=== PATIENT | female | born 1995 | race Caucasian/White ===

== ENCOUNTER → 2018-05-27 12:38 | Outpatient (CLI) | payer OTHER, SELFPAY ==
--- NOTE | 2018-05-27 12:42 | US_ITS ---
US OB transvaginal Ordering Physician: Chi Zarate MD Patient Age: 22 years: Female HISTORY: ITS.REASON: US OB- Dates Early gestation evaluate fordates TECHNIQUE: Transvaginal scanning. COMPARISON :None FINDINGS Single viable intrauterine gestation. . Cervix long and closed measuring over 3.3 cm length measurements: Average ultrasound age = 9 weeks 4 days Gestational age = 10 weeks 0 days... Based on LMP of 03/18/2018 [facility] based on ultrasound = 12/26/2018. Yolk sac is identified and measures 0.57 cm. Average CRL = 2.75 cm = 9 weeks 4 days Heart rate 170 BPM. Cardiac and activity documented with cine. Left ovary 3.5 cm x 2 cm x 1.75 cm. ....IMPRESSION: ... Single viable intrauterine gestation. Active fetus. With Yolk sac, amnion identified 9 weeks 4 days average ultrasound age Left ovary generous but normal volume.] Is not seen.
== END ==
PROVIDERS: Family Provider Internal Medicine Adolescent Medicine; PCP Internal Medicine Adolescent Medicine; Visit Provider Nurse Practitioner Obstetrics & Gynecology
DX: O26.841 Uterine size-date discrepancy, first trimester (principal)
CPT/HCPCS: 76830

== ENCOUNTER → 2018-06-07 09:54 | Outpatient (CLI) | payer OTHER, SELFPAY ==
[2018-06-07 10:32] LABS: Basophils % 0.2 % (0.1-2.0); Eosinophils # 0.2 K/mm3 (0.0-0.4); Eosinophils % 1.6 % (0.1-12.0); Hematocrit 41.8 % (37.0-47.0); Hemoglobin 13.7 g/dL (12.2-16.2); Lymphocytes # 1.8 K/mm3 (0.7-4.5); Lymphocytes % 18.2 K/mm3 (10-50); Mean Corpuscular HGB Conc 32.7 g/dL (31.8-35.4); Mean Corpuscular Hemoglobin 26.8 pg (27.0-31.2); Mean Corpuscular Volume 81.8 fl (81-99); Mean Platelet Volume 7.2 fl (7.4-10.4); Monocytes # 0.3 K/mm3 (0.1-1.0); Monocytes % 3.2 % (1.7-9.3); Neutrophils # 7.5 K/mm3 (1.8-7.8); Neutrophils % 76.8 % (37.0-80.0); Platelet Count 297 K/mm3 (142-424); Red Blood Count 5.11 M/mm3 (4.20-5.40); Red Cell Distribution Width 14.9 % (11.5-17.5); White Blood Count 9.7 K/mm3 (4.8-10.8)
[2018-06-10 06:33] LABS: Hepatitis B Surface Antigen Negative (Negative)
[2018-06-10 06:34] LABS: HIV Screen 4th Generation wRfx Non Reactive (Non Reactive); Hepatitis C Antibody 0.1 s/co ratio (0.0-0.9); Rapid Plasma Reagin Ab Titer Non Reactive (NonRea<1:1); Rubella Antibodies, IgG 8.31 index (Immune >0.99)
== END ==
PROVIDERS: Family Provider Internal Medicine Adolescent Medicine; PCP Internal Medicine Adolescent Medicine; Visit Provider Nurse Practitioner Obstetrics & Gynecology
DX: Z34.90 Encounter for supervision of normal pregnancy, unspecified, unspecified trimester (principal)
CPT/HCPCS: 36415; 85025; 86592; 86703; 86762; 86850; 87340; 87380; G0432

== ENCOUNTER → 2018-08-09 10:06 | Outpatient (CLI) | payer OTHER, BC, SELFPAY ==
--- NOTE | 2018-08-09 10:07 | US_ITS ---
US OB /maternal detail: INDICATION: ITS.REASON: US OB Complete ORDERING PHYSICIAN: Chi Zarate MD PATIENT AGE: 23 years TECHNIQUE: ultrasound transabdominal scanning. COMPARISON: No previous relevant studies. FINDINGS: Single viable intrauterine gestation. Variable, ended Cephalic position. Placenta: Anterior placenta grade 1. There is average amount fluid. The cervix appears satisfactory. Closed and measuring 4 cm in length. Complete survey performed and was unremarkable on the submitted images as in PACS. No discrete anomalies identified on survey imaging by technologist. Active fetus. Three-vessel cord with satisfactory umbilical cord insertion. 4- chamber heart noted. Survey of brain & ventricles unremarkable. Face and neck survey unremarkable. Diaphragm and chest views unremarkable. Abdomen: Both kidneys noted and unremarkable. Stomach noted and satisfactory. Spine: Survey of the spine satisfactory with no anomalies identified nor imaged. Both arms and legs noted. Amniotic Fluid: Adequate. Maternal adnexa: No significant findings. Measurements: Average ultrasound age 20w0d. Gestational Age 20w1d. Estimated due date by ultrasound age 0212/27/2018. Estimated weight 319 grams. BPD = 20w1d OFD = 20w3d HC = 19w4d AC = 19w5d FL = 20w2d Growth Percentile= 31% Heart Rate = 163 Cerebellum = 19w6d Humerus = 20w3d HC/AC is 1.18 (1.09-1.26). CI is 78% (70-86%). FL/BPD is 70%. FL/AC is 23%. IMPRESSION: There is a single live fetus which was in variable position but ended in the cephalic position. Average ultrasound age is 20 weeks and 0 days. All parameters correlate. Fetus was active with no anomalies apparent. Anterior grade 1 placenta without previa with average appearing amniotic fluid. Please see above for details
== END ==
PROVIDERS: Family Provider Internal Medicine Adolescent Medicine; PCP Internal Medicine Adolescent Medicine; Visit Provider Nurse Practitioner Obstetrics & Gynecology
DX: Z36.0 Encounter for antenatal screening for chromosomal anomalies (principal)
CPT/HCPCS: 76811

== ENCOUNTER → 2018-09-30 08:00 | Outpatient (CLI) | payer OTHER, BC, SELFPAY ==
[2018-09-30 09:15] LABS: Glucose,Fasting 98 mg/dL (60-105)
[2018-09-30 10:19] LABS: Glucose 1 Hour 163 mg/dL (74-106)
== END ==
PROVIDERS: Visit Provider Nurse Practitioner Obstetrics & Gynecology
DX: Z34.90 Encounter for supervision of normal pregnancy, unspecified, unspecified trimester (principal)
CPT/HCPCS: 36415; 82951

== ENCOUNTER → 2018-10-24 08:10 | Outpatient (CLI) | payer OTHER, BC, SELFPAY ==
[2018-10-24 08:27] LABS: Glucose,Fasting 101 mg/dL (60-105)
[2018-10-24 09:50] LABS: Glucose 1 Hour 193 mg/dL (74-106)
[2018-10-24 10:54] LABS: Glucose 2 Hour 175 mg/dL (74-106)
[2018-10-24 11:45] LABS: Glucose 3 Hour 162 mg/dL (74-106)
== END ==
PROVIDERS: Visit Provider Nurse Practitioner Obstetrics & Gynecology
DX: Z34.90 Encounter for supervision of normal pregnancy, unspecified, unspecified trimester (principal)
CPT/HCPCS: 36415; 82951

== ENCOUNTER → 2018-12-02 14:43 | Outpatient (CLI) | payer OTHER, BC, SELFPAY | PROVIDERS: Visit Provider Nurse Practitioner Obstetrics & Gynecology | DX: Z34.90 Encounter for supervision of normal pregnancy, unspecified, unspecified trimester (principal) | CPT/HCPCS: 86403 ==

== ENCOUNTER 2018-12-26 05:56 | Inpatient (IN) ==
[2018-12-26 06:41] LABS: Microscopic, Urine URINE MICROSCOPIC (MICROSCOPIC)
[2018-12-26 06:44] LABS: Appearance,Urine SL CLOUDY (Clear); Bilirubin,Urine Negative (Negative); Blood, Urine TRACE-I (Negative); Color,Urine YELLOW (Yellow); Glucose,Urine (UA) Negative (Negative); Ketones,Urine Negative (Negative); Leukocyte Esterase,Urine Negative (Negative); Protein,Urine 2+ (Negative); Urobilinogen,Urine 0.2 EU/dl (0.2)
[2018-12-26 06:47] VITALS: BP 128/82
[2018-12-26 07:00] LABS: Bacteria,Urine 4+ /lpf; RBC,Urine Occasional #/hpf (0-3); WBC,Urine Occasional #/hpf (0-3)
[2018-12-26 07:46] LABS: Basophils % 0.1 % (0.1-2.0); Eosinophils # 0.1 K/mm3 (0.0-0.4); Eosinophils % 1.5 % (0.1-12.0); Hematocrit 35.8 % (37.0-47.0); Hemoglobin 12.1 g/dL (12.2-16.2); Lymphocytes # 1.3 K/mm3 (0.7-4.5); Lymphocytes % 13.9 % (10-50); Mean Corpuscular HGB Conc 33.8 g/dL (31.8-35.4); Mean Corpuscular Hemoglobin 27.4 pg (27.0-31.2); Monocytes # 0.3 K/mm3 (0.1-1.0); Monocytes % 3.7 % (1.7-9.3); Neutrophils # 7.3 K/mm3 (1.8-7.8); Neutrophils % 80.7 % (37.0-80.0); Platelet Count 263 K/mm3 (142-424); Red Blood Count 4.42 M/mm3 (4.20-5.40)
--- NOTE | 2018-12-26 08:20 | Progress Note ---
Labor Note - Subjective: Date: 12/26/18 Time: 08:20 irregular contractions - Objective: NST:: Reactive Contractions:: every 4-5 minutes Cervical Dilation:: 3-4 Effacement:: 75% Station: 0 Membranes: ruptured - Fetus: Monitoring?: Yes monitoring type:: Internal Comment:: I inserted an IUPC and scalp clip. - Assessment: Labor progressing?: Yes Cephalopelvic disproportion?: No Patient Problems: All Active Problems Abnormal ultrasonic finding on screening of mother (Acute) GDM, class A1 (Acute) Polyhydramnios affecting (Acute) (Acute) - Plan: Anesthesia for epidural?: Yes Continue to labor down?: Yes Plan for ?: No Continue to monitor?: Yes Start pushing?: No
--- NOTE | 2018-12-26 08:22 | History & Physical Report ---
OB - H&P: HPI Antepartum - History of Present Illness Chief complaint: Term , ruptured membranes History of present illness: She is a-year-old 1 now para 0 at 40 weeks of. She ruptured her membranes about 5:00 she is a gestational diabetic with known polyhydramnios. - History of Present Criteria for establishing EDC:: LMP confirmed by 1st trimester US care: good care Ultrasounds: normal 1st trimester US, normal mid trimester US Obstetrical complications: gestational diabetes, other [facility] History I have reviewed the patient's past medical history: Yes Have you ever received a pneumonia vaccine?: No Have you received a flu vaccine this season?: No Other Surgeries: No: Amputation: No Fractures: No - *Social History Smoking Status: Never smoker Alcohol Intake: never Substance Use Type: denies use Occupational Status: other, student Family Hx:: No significant family history Para: 0 Review of Systems - Review of Systems Review of systems:: pertinent systems reviewed and negative unless documented below Meds Home Medications Medication Instructions Recorded Confirmed Type glyburide 2.5 mg tablet 2.5 mg PO DAILY 12/12/18 12/26/18 History Ferrous Sulfate 325 mg PO DAILY 12/26/18 12/26/18 History Lancets 0 unit .ROUTE .MEDSUPPLY 12/26/18 12/26/18 History Vit Calc,Iron,Folic [Kpn] 1 tab PO DAILY 12/26/18 12/26/18 History Allergies Allergy/AdvReac Type Severity Reaction Status Date / Time wheat Allergy Verified 12/26/18 06:47 MAPLE Allergy Uncoded 12/26/18 06:47 OB - H&P: Exam - Physical Exam Vital signs: Temp Pulse Resp BP Pulse Ox 98.0 F 83 18 128/82 100 12/26/18 06:12 12/26/18 06:12 12/26/18 06:12 12/26/18 06:12 12/26/18 06:12 - Constitutional no acute distress - Routine HEENT Exam Head: Present: normocephalic Eye: Present: EOMI, PERRL ENT: Present: mucous membranes moist - Routine Neck Exam Present: supple, full ROM - Routine Respiratory Exam Absent: accessory muscle use (good air entry bilaterally), respiratory distress, wheezes, crackles - Routine Cardiovascular Exam Present: RRR. Absent: murmur - Routine Abdominal Exam Present: soft, normoactive bowel sounds. Absent: tenderness, distended, guarding - Routine Rectal Exam Patient deferred: visual exam, digital exam - Routine Exam Patient deferred: external exam, groin exam, perineal exam - Routine Extremities Exam Present: full ROM. Absent: cyanosis, edema - Routine Skin Exam Present: intact. Absent: cyanosis - Routine Neurological Exam Present: alert, oriented X3 - Routine Psychiatric Exam Present: normal affect OB - Results - Labs Labs: Short CBC 12/26/18 Range/Units 07:20 WBC 9.0 (4.8-10.8) K/mm3 Hgb 12.1 L (12.2-16.2) g/dL Hct 35.8 L (37.0-47.0) % Plt Count 263 (142-424) K/mm3 Urine 12/26/18 Range/Units 06:25 Urine Color Yellow (Yellow) Urine Appearance Sl cloudy (Clear) Urine pH 7.0 (5.0-8.5) Ur Specific [place] 1.010 (1.005-1.030) Urine Protein 2+ (Negative) Urine Glucose (UA) Negative (Negative) OB - A/P Antepartum (1) Normal delivery at term Current visit: Yes Status: Acute (2) GDM, class A1 Current visit: No Status: Acute (3) Polyhydramnios affecting Current visit: No Status: Acute - Additional Plan Planning to breastfeed?: Yes Plan: expectant management Additional Information:: She has ruptured membranes and I inserted an IUPC and. She is receiving. We will expect a vaginal delivery.
--- NOTE | 2018-12-26 09:28 | Progress Note ---
[facility] Anesthesia Checklist - Structural Data Admitted From: Inpatient Planned Operative Procedure/s: labor epidural Consent for Planned Operative Procedure(s) Verified: Yes - Airway Assessment C-Spine Mobility Assessed: Yes TMJ Mobility Assessed: Yes Dentition: Good Dentition - Neurological Assessment Level of Consciousness: Awake, Alert, Appropriate - Anesthesia Plan Anesthesia Risk discussed: Yes Anesthesia Plan: Verified ASA Class: II Anesthesia Type: General [facility] History I have reviewed the patient's past medical history: Yes Have you ever received a pneumonia vaccine?: No Have you received a flu vaccine this season?: No Other Surgeries: No: Amputation: No Fractures: No - *Social History Smoking Status: Never smoker Alcohol Intake: never Substance Use Type: denies use Occupational Status: other, student Family Hx:: No significant family history Para: 0
--- NOTE | 2018-12-26 11:59 | Progress Note ---
Labor Note - Subjective: Date: 12/26/18 Time: 11:58 regular contraction - Objective: NST:: Reactive Contractions:: every 2-3 minutes Cervical Dilation:: 7-8 Effacement:: 100% Station: 0 Membranes: ruptured - Fetus: Monitoring?: No monitoring type:: Internal - Assessment: Labor progressing?: Yes Cephalopelvic disproportion?: No Patient Problems: All Active Problems Normal delivery at term (Acute) Abnormal ultrasonic finding on screening of mother (Acute) GDM, class A1 (Acute) Polyhydramnios affecting (Acute) (Acute) - Plan: Anesthesia for epidural?: Yes Continue to labor down?: Yes Plan for ?: No Continue to monitor?: Yes Start pushing?: No
--- NOTE | 2018-12-26 13:39 | Procedure Note ---
- Delivery Note Delivery Date:: 12/26/18 Delivery Time:: 13:20 Anesthesia Type: Epidural Was labor medically induced?: No Induction method: none Infant delivered prior to 39 weeks?: No Infant Gender: Male at 1 minute: 8 at 5 minutes: 9 LAC or MLE?: LAC Delivery Procedure:: She is a 23-year-old 1 para 1 now at 40 weeks gestational age. She ruptured her membranes this morning and was in early labor. She was augmented with oxytocin and under labor epidural progressed to full dilation. She delivered spontaneously a liveborn male child at 1:20 PM in the afternoon of December 26, 2018. The baby had Apgars of 8 at 1 minute and 9 at 5 minutes. PH was 7.46. On deliver the head it was noted that there was a nuchal cord. This was easily reduced. This is followed by deliver the anterior shoulder and the rest of the infant's body atraumatically. We allowed the cord to continue to pulsate for approximately 1 minute. The cord was then doubly clamped and cut. The baby was placed on the mother's abdomen for further care. The nurses assigned Apgars of 8 at 1 minute and 9 at 5 minutes. We then obtained cord blood as well as cord pH. PH was 7.46. Using gentle traction on the cord and countertraction the fundus I was able to easily deliver the placenta intact. It had a normal three-vessel cord. A small second-degree perineal laceration that was repaired with 3-0 Vicryl Rapide suture to the superficial vaginal tissue and 2-0 Vicryl suture to the perineal tissue. She has O+ blood, she is rubella immune and was group B streptococcus negative. She plans to breast-feed. Her dictaphone transcriber is Dr. Vasques. Estimated blood loss was approximately 400 cc. Laceration:: vaginal Placental Delivery Description: Spontaneous
[2018-12-27 06:46] LABS: Hematocrit 32.3 % (37.0-47.0)
[2018-12-27 07:04] LABS: Hemoglobin 10.8 g/dL (12.2-16.2)
--- NOTE | 2018-12-27 10:18 | Progress Note ---
Internal Medicine - PN: Subj *Date: 12/27/18 *Time: 10:17 Interval history: She is doing well this morning. She is bottle feeding. Her lochia is normal. Exam Vital signs and Labs for Last 24 Hours: Temp Pulse Resp BP Pulse Ox 98.0 F 83 18 128/82 100 12/26/18 06:12 12/26/18 06:12 12/26/18 06:12 12/26/18 06:12 12/26/18 06:12 Laboratory Results - last 24 hr 12/26/18 13:30: Cord ABG pH 7.36 12/27/18 06:00: Hgb 10.8 L D, Hct 32.3 L I & O for Last 24 hours: Intake & Output 12/24/18 12/25/18 12/26/18 12/27/18 11:59 11:59 11:59 11:59 Output Total 700 / 700 Balance -700 / -700 Weight 209 lb Microbiology Reports for the Last 24 Hours: Microbiology 12/26/18 06:25 Urine,Clean Catch Urine Culture - Preliminary NO GROWTH AFTER 24 HOURS - Constitutional no acute distress Assessment and Plan (1) Normal delivery at term Current visit: Yes Status: Acute Category: Medical Code(s): O80 - Encounter for full-term uncomplicated delivery (2) GDM, class A1 Current visit: No Status: Acute Category: Medical Code(s): O24.410 - Gestational diabetes mellitus in , diet controlled (3) Polyhydramnios affecting Current visit: No Status: Acute Category: Medical Code(s): O40.9XX0 - Polyhydramnios, unspecified trimester, not applicable or unspecified - Assessment and plan all Dx Assessment and Plan for all problems:: She is doing well today. We will plan to send her home tomorrow.
--- NOTE | 2018-12-28 10:09 | Discharge Summary ---
General - General Admission date:: 12/26/18 Discharge date: 12/28/18 HPI HPI: She is a 23-year-old 1 now para 1 who was 40 weeks gestational age. She came in with ruptured membranes. She has been followed with gestational diabetes throughout the . Hospital Course Hospital Course: She was augmented with oxytocin and under labor epidural progressed to full dilation. She delivered spontaneously a liveborn male child at 1:20 PM on the afternoon of December 26, 2018. The baby weighed 6 pounds 5 ounces. He was 19 inches long. He had Apgars of 8 at 1 minute and 9 at 5 minutes. She has done well and has remained afebrile throughout her hospitalization. She is taking [id number] analgesics. She is bottlefeeding. She has O+ blood, she is rubella immune and was group B streptococcus negative. She is discharged home to follow-up with me in 2 weeks time. Rhogam Administration: Not Indicated Objective Vital signs: Temp Pulse Resp BP Pulse Ox 98.0 F 83 18 128/82 100 12/26/18 06:12 12/26/18 06:12 12/26/18 06:12 12/26/18 06:12 12/26/18 06:12 no acute distress DS: Diagnosis - Discharge Diagnosis (1) Normal delivery at term Status: Acute (2) GDM, class A1 Status: Acute (3) Polyhydramnios affecting Status: Acute Discharge Plan - Patient Discharge Instructions ACTIVITY: No heavy lifting DIET: continue same diet - Follow up Plan Disposition: Home, Self-Halfway Medications: Home Medications Medication Instructions Recorded Confirmed Type glyburide 2.5 mg tablet 2.5 mg PO DAILY 12/12/18 12/26/18 History Ferrous Sulfate 325 mg PO DAILY 12/26/18 12/26/18 History Lancets 0 unit .ROUTE .MEDSUPPLY 12/26/18 12/26/18 History Vit Calc,Iron,Folic [Kpn] 1 tab PO DAILY 12/26/18 12/26/18 History Prescriptions/Medication Reconciliation: Continue Ferrous Sulfate 325 mg PO DAILY Vit Calc,Iron,Folic [Kpn] 1 tab PO DAILY Discontinued glyburide 2.5 mg tablet 2.5 mg PO DAILY Lancets 0 unit .ROUTE .MEDSUPPLY
== END 2018-12-28 11:32 | disposition home or self-care (01) | DRG 807 ==
LOC: OBOUT 05:56 → OB 05:58
PROVIDERS: ADMIT Obstetrics & Gynecology; ATTEND Nurse Practitioner Obstetrics & Gynecology
CPT/HCPCS: C1758

== ENCOUNTER 2020-10-07 21:37 | Emergency (ER) | payer OTHER, SELFPAY ==
[2020-10-07 21:39] VITALS: BP 139/80; PULSE 116; RESP 17; TEMP 37; O2SAT 99; BMI 34.9
[2020-10-07 22:03] LABS: Microscopic, Urine URINE MICROSCOPIC (MICROSCOPIC)
[2020-10-07 22:07] LABS: Appearance,Urine CLEAR (Clear); Bilirubin,Urine Negative (Negative); Blood, Urine 1+ (Negative); Color,Urine YELLOW (Yellow); Glucose,Urine (UA) Negative (Negative); Ketones,Urine Negative (Negative); Leukocyte Esterase,Urine Negative (Negative); Nitrate,Urine Negative (Negative); Protein,Urine Negative (Negative); Specific Gravity, Urine 1.025 (1.005-1.030)
[2020-10-07 22:09] VITALS: BP 129/81; PULSE 92; O2SAT 98
[2020-10-07 22:09] LABS: Urine Pregnancy, HCG Qual. Negative (Negative)
--- NOTE | 2020-10-07 22:20 | XR_ITS ---
PROCEDURE: XR LUMBAR SPINE MIN 4V CLINICAL INDICATION: back pain Low back pain radiating into leg COMPARISON: No exams were available for comparison FINDINGS: Suspected thoracic lumbar scoliosis convex left and could be scoliosis. The thoracic spine is not included on the exam. No fracture or dislocation. No lytic or blastic change. There is an IUD in place. The disc spaces are well preserved. SI joints have an unremarkable appearance. IMPRESSION: Suspect thoracolumbar scoliosis convex left and may be confirmed with scoliosis exam otherwise negative Dictated by: Santy Khan MD 10/08/2020 05:41 Santy Khan MD in [place] 10/08/2020 05:41
[2020-10-07 22:23] LABS: Bacteria,Urine Trace /lpf
[2020-10-07 22:30] VITALS: BP 121/69; PULSE 86; RESP 15; O2SAT 97
--- NOTE | 2020-10-07 22:41 | PC.NURSE ---
pt to radiology
--- NOTE | 2020-10-07 22:46 | [facility].EDBACK ---
ED Disposition Clinical Impression: Lumbar radiculopathy Disposition: Home, Self-Care Condition on Discharge: Good Instructions: DI for Back Pain With Sciatica Additional Instructions: use meds and see pcp for follow up Prescriptions: Cyclobenzaprine HCl [Flexeril 10mg tablet] 10 mg PO Q8HP PRN 30 Days #21 tab PRN Reason: Muscle Spasm [id number] predniSONE [Prednisone 20mg Tab] 20 mg PO BID #10 tab Transmission Status: [id number] Referrals: Matt Langley MD [Primary Care Provider] - - Critical Care Critical Care Time: No Attestation: On 10/07/20, the high probability of a clinically significant, sudden or life threatening deterioration of the following system(s) required my full and direct attention, intervention and personal management. The time I documented below is in addition to time spent performing reported procedures but includes the following listed in this critical care notation. Medical Decision Making - Medical Records Medical records reviewed: Yes: I reviewed the patient's medical records. - Jose Inquiry Pt receiving controlled substance: No Vital Signs: 10/07/20 21:39 10/07/20 22:09 10/07/20 22:30 Temperature 98.6 F Temperature Source Oral Pulse Rate [Left Radial] 116 H 92 H 86 Respiratory Rate 17 15 Blood Pressure [Right Arm] 139/80 129/81 121/69 Blood Pressure Mean [Right Arm] 99 97 86 Blood Pressure Source [Right Arm] Automatic Cuff Blood Pressure Position [Right Arm] Sitting 02 Sat by Pulse Oximetry 99 98 97 Oxygen Delivery Method Room Air - Lab Data Lab results reviewed: Yes: I reviewed the patient's lab results. Lab Results 10/07/20 21:48: Urine Color Yellow, Urine Appearance Clear, Urine pH 6.0, Ur Specific [place] 1.025, Urine Protein Negative, Urine Glucose (UA) Negative, Urine Ketones Negative, Urine Blood 1+, Urine Nitrate Negative, Urine Bilirubin Negative, Urine Urobilinogen 1.0, Ur Leukocyte Esterase Negative, Urine RBC 5-10, Urine WBC 10-20, Ur Squamous Epith Cells 10-20, Urine Bacteria Trace 10/07/20 21:48: Urine HCG, Qual Negative Orders (Tests/Meds): ORDERS Category Date Time Status XR lumbar spine min 4V Stat Exams 10/07/20 22:20 Ordered Urine Culture Stat Micro 10/07/20 21:48 Received - Radiology Data #1 Image(s): L-Spine Image Reviewed: Yes I reviewed the patient's radiology image Preliminary Findings: No Fracture Seen Back Pain HPI - General Chief Complaint: Back Pain/Injury Stated Complaint: back pain bent to lift child Time Seen by Provider: 10/07/20 22:30 Mode of Arrival: Ambulatory Source of Information: Patient, Medical Record Limitations: No Limitations Description of Symptoms (Recalled from ER Triage Doc. by RN): Pt reports lifting her child and feeling a pop in her lower back. She states her pain radiates down her right leg. Pt is ambulatory. She reports hx of sciatic nerve problems. - History of Present Illness HPI Narrative: lift injury with pop and rad to rt lower leg - no cauda equina sx Complaint: back pain Onset (ago): hour(s) Duration: intermittent Similar Symptoms Previously: Yes Location: lumbar spine Severity: moderate Quality: sharp Radiation: right leg Associated symptoms: denies other symptoms - Related Data Previous Rx's Medication Instructions Recorded Cyclobenzaprine HCl [Flexeril 10mg 10 mg PO Q8HP PRN 30 Days #21 tab 10/07/20 tablet] predniSONE [Prednisone 20mg 20 mg PO BID #10 tab 10/07/20 Tab] Allergies Allergy/AdvReac Type Severity Reaction Status Date / Time wheat Allergy Verified 03/16/19 09:54 MAPLE Allergy Uncoded 03/16/19 09:54 [facility] History - Hepatitis A Screen Drug use history?: No High risk sexual behaviors?: No History of sexually transmitted infection?: No Currently employed?: No Childcare worker?: No Do you have indoor plumbing?: Yes Do you have electric
[2020-10-07 22:54] VITALS: BP 121/69; PULSE 86; RESP 16; TEMP 36.7; O2SAT 98
== END 2020-10-07 23:00 | disposition home or self-care (01) ==
PROVIDERS: Emergency Provider Emergency Medicine; PCP Internal Medicine Adolescent Medicine
DX: M54.16 Radiculopathy, lumbar region (principal)
CPT/HCPCS: 72110; 81001; 81025; 87086; 87088; 87186; 99283

== ENCOUNTER 2024-05-14 11:36 | Emergency (ER) | payer BC, SELFPAY ==
[2024-05-14] VITALS (8 sets, daily range): BP systolic 109–136; BP diastolic 64–95; PULSE 78–127; RESP 16–18; TEMP 37–39; O2SAT 96–98; BMI 32.5
[2024-05-14 11:50] LABS: Microscopic, Urine URINE MICROSCOPIC (MICROSCOPIC)
--- NOTE | 2024-05-14 11:50 | PC.NURSE ---
DR BLAND AT BEDSIDE
[2024-05-14 11:51] LABS: Appearance,Urine CLOUDY (Clear); Bilirubin,Urine Negative (Negative); Blood, Urine 3+ (Negative); Color,Urine YELLOW (Yellow); Glucose,Urine (UA) Negative (Negative); Ketones,Urine 1+ (Negative); Leukocyte Esterase,Urine 3+ (Negative); Nitrate,Urine Negative (Negative); Protein,Urine 1+ (Negative); Urobilinogen,Urine 0.2 EU/dl (0.2)
--- NOTE | 2024-05-14 12:00 | XR_ITS ---
PROCEDURE INFORMATION: Exam: XR Chest Exam date and time: 05/14/2024 12:36 PM Age: 28 years old Clinical indication: Cough; Additional info: Cough, fever TECHNIQUE: Imaging protocol: Radiologic exam of the chest. Views: 2 views. COMPARISON: No relevant prior studies available. FINDINGS: Lungs: Unremarkable. No consolidation. Pleural spaces: Unremarkable. No pleural effusion. No pneumothorax. Heart/Mediastinum: Unremarkable. No cardiomegaly. Bones/joints: Unremarkable. IMPRESSION: No acute findings.
--- NOTE | 2024-05-14 12:00 | CT_ITS ---
PROCEDURE INFORMATION: Exam: CT Abdomen And Pelvis With Contrast Exam date and time: 05/14/2024 12:52 PM Age: 28 years old Clinical indication: Vomiting; Additional info: Lower abd pain, fever, diarrhea, vomiting TECHNIQUE: Imaging protocol: Computed tomography of the abdomen and pelvis with contrast. Radiation optimization: All CT scans at this facility use at least one of these dose optimization techniques: automated exposure control; mA and/or kV adjustment per patient size (includes targeted exams where dose is matched to clinical indication); or iterative reconstruction. Contrast material: ISOVUE; Contrast volume: 75 ml; Contrast route: IV; COMPARISON: OBFEMAT US OB /maternal detail 08/09/2018 10:13 AM FINDINGS: Liver: Normal. No mass. Gallbladder and biliary ducts: Normal. No calcified stones. No ductal dilation. Pancreas: Normal. No ductal dilation. Spleen: Normal. No splenomegaly. Adrenal glands: Normal. No mass. Kidneys and ureters: Patchy hypoattenuation in the left kidney consistent with pyelonephritis. Mild perinephric inflammatory changes around the left kidney consistent with infection. . Stomach and bowel: Unremarkable. No obstruction. No mucosal thickening. Appendix: No evidence of appendicitis. Intraperitoneal space: Unremarkable. No free air. No significant fluid collection. Vasculature: Unremarkable. No abdominal aortic aneurysm. Lymph nodes: Unremarkable. No enlarged lymph nodes. Urinary bladder: Unremarkable as visualized. Reproductive: IUD in the uterus non-obstructing left renal calculus Bones/joints: Unremarkable. No acute fracture. Soft tissues: Unremarkable. IMPRESSION: Patchy hypoattenuation in the left kidney consistent with pyelonephritis. Mild perinephric inflammatory changes around the left kidney consistent with infection. .
--- NOTE | 2024-05-14 12:08 | ED_ITS ---
Discharge Plan Disposition Patient Disposition: Home, Self-Care Condition: Good Prescriptions Prescriptions: New ondansetron 4 mg tablet,disintegrating 4 mg PO Q8H PRN (Reason: nausea and vomiting) 4 Days Qty: 12 0RF phenazopyridine [Pyridium] 200 mg tablet 200 mg PO Q8H PRN (Reason: pain) Qty: 6 0RF cefdinir 300 mg capsule 300 mg PO BID 10 Days Qty: 20 0RF Referrals Follow up/Referrals: Janessa Swanson APRN [Primary Care Provider] - See instructions Activity Restrictions/Add. Instructions Additional Instructions/Restrictions: You were evaluated in the emergency department today and diagnosed with a kidney infection. 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 You may take Tylenol and ibuprofen at home as needed for pain and/or fever. Make sure that you stay hydrated. Follow-up with your primary care provider over the next 2 to 3 days for reassessment. Return to the emergency department for new or worsening symptoms. Clinical Impressions Clinical Impression: Pyelonephritis Stand Alone Forms Stand Alone Forms: Work/School Release Instructions Patient Instructions: DI for Kidney Infection, DI for Nausea -- Adult Discharge ED Provider: Ely Son General Adult HPI General Chief complaint: Nausea/Vomiting/Diarrhea Stated complaint: vomiting, fever, dehydrated, abd pain Time Seen by Provider: 05/14/24 11:43 History of Present Illness HPI narrative: This patient is a 28-year-old female presenting to the emergency department for evaluation with concern for abdominal pain, nausea, vomiting, diarrhea, and fever. Patient reports that for the last month, she is intermittently been having lower abdominal pain that seems to worsen with eating. She also has some bloating. She notes she had initially been constipated, but now for the last few days she has been having nausea, vomiting, and diarrhea. Emesis is nonbloody and nonbilious and diarrhea is nonbloody. Has not been able to keep anything down and is concerned she is dehydrated. She started having fevers yesterday. She also notes a mild cough on review of systems. She denies any shortness of breath, dysuria, abnormal vaginal discharge, vaginal bleeding, or other concerns. She denies concerned she could be , as she currently has an IUD. She also denies concerns for STI. Related Data Previous Rx's Medication Instructions Recorded cefdinir 300 mg capsule 300 mg PO BID 10 days #20 caps 05/14/24 ondansetron 4 mg disintegrating 4 mg PO Q8H PRN nausea and 05/14/24 tablet vomiting 4 days #12 tabs phenazopyridine 200 mg tablet 200 mg PO Q8H PRN pain 6 doses #6 05/14/24 (Pyridium) tabs Allergies Allergy/AdvReac Type Severity Reaction Status Date / Time wheat Allergy Verified 03/16/19 09:54 MAPLE Allergy Uncoded [facility]16[facility] 09[facility] Disclaimer: The information contained in this section may have been updated after the patient was seen, as this information can be updated by other users. Social History Smoking Status: Never smoker alcohol intake: never substance use type: denies use current occupational status: unemployed Travel in the last 8 weeks: None housing: house ROS Obtained: Yes All systems reviewed & no additional complaints except as documented Physical Exam General General appearance: alert and in no apparent distress Head Head exam: atraumatic and normocephalic Eye Eye exam: Present normal appearance, PERRL and EOMI ENT ENT exam: Present normal exam, normal oropharynx, mucous membranes moist and normal external ear exam Neck Neck exam: Present normal inspection, full ROM and trachea midline; Absent tenderness Chest Chest inspection: Present normal inspection and symmetric chest wall rise; Absent tenderness Respiratory Respiratory exam: Present normal lung sounds bilaterally; Absent respiratory distress, wheezes, stridor or accessory muscle use Cardiovascular Cardiovascular exam: Present normal rhythm and tachycardia Abdominal Exam Abdominal exam: Present soft and tenderness (Lower abdomen); Absent distention, guarding, rebound or rigidity Extremities Exam Extremities exam: Present normal inspection, full ROM and normal capillary refill; Absent tenderness or edema Back Exam Back exam: Present normal inspection and full ROM; Absent tenderness Neurological Exam Neurological exam: Present alert, oriented X3, CN II-XII intact and normal gait; Absent motor sensory deficit Psychiatric Psychiatric exam: Present normal affect and normal mood Skin Skin exam: Present warm and dry Medical Decision Making Medical Records Medical records reviewed: Yes I reviewed the patient's medical records. Jose Inquiry Pt receiving controlled substance: No Vital Signs: 05/14/24 11:37 05/14/24 12:00 05/14/24 12:34 Temperature 102.2 F H Temperature Source Oral Pulse Rate 115 H 98 H Pulse Rate [Right] 127 H Respiratory Rate 16 Blood Pressure 129/95 H 115/70 Blood Pressure [Right Arm] 136/83 Blood Pressure Mean 103 85 Blood Pressure Mean [Right Arm] 100 Blood Pressure Source Blood Pressure Source [Right Arm] Automatic Cuff 02 Sat by Pulse Oximetry 98 96 96 Oxygen Delivery Method Room Air Room Air Room Air 05/14/24 13:00 05/14/24 13:30 05/14/24 14:00 Temperature Temperature Source Pulse Rate 100 H 92 H 89 Pulse Rate [Right] Respiratory Rate Blood Pressure 128/72 109/64 L 111/72 Blood Pressure [Right Arm] Blood Pressure Mean 87 79 77 Blood Pressure Mean [Right Arm] Blood Pressure Source Blood Pressure Source [Right Arm] 02 Sat by Pulse Oximetry 98 97 98 Oxygen Delivery Method Room Air Room Air Room Air 05/14/24 14:30 05/14/24 15:00 Temperature 98.6 F Temperature Source Oral Pulse Rate 81 78 Pulse Rate [Right] Respiratory Rate 18 16 Blood Pressure 114/71 114/70 Blood Pressure [Right Arm] Blood Pressure Mean 83 Blood Pressure Mean [Right Arm] Blood Pressure Source Automatic Cuff Blood Pressure Source [Right Arm] 02 Sat by Pulse Oximetry 97 Oxygen Delivery Method Room Air Room Air Lab Data Lab results reviewed: Yes I reviewed the patient's lab results. Lab Results 05/14/24 11:39: Urine Color Yellow, Urine Appearance Cloudy, Urine pH 6.0, Ur Specific [place] 1.010, Urine Protein 1+, Urine Glucose (UA) Negative, Urine Ketones 1+, Urine Blood 3+, Urine Nitrate Negative, Urine Bilirubin Negative, Urine Urobilinogen 0.2, Ur Leukocyte Esterase 3+ A, Urine RBC 5-10, Urine WBC 50-100, Ur Squamous Epith Cells Occasional, Urine Bacteria 1+ 05/14/24 12:14: WBC 16.3 H, RBC 4.41, Hgb 12.6, Hct 38.6, MCV 87.7, MCH 28.5, MCHC 32.5, RDW 14.2, Plt Count 376, MPV 7.8, Neut % (Auto) 88.3 H, Lymph % (Auto) 6.5 L, Desha % (Auto) 4.9, Eos % (Auto) 0.1, Baso % (Auto) 0.2, Neut # (Auto) 14.4 H, Lymph # (Auto) 1.1, Desha # (Auto) 0.8, Eos # (Auto) 0.0, Baso # (Auto) 0.0, Total Counted 100, Neutrophils % (Manual) 90 H, Lymphocytes % (Manual) 6 L, Monocytes % (Manual) 4, Platelet Estimate Normal, RBC Morphology Normal, Sodium 138, Potassium 3.6, Chloride 102, Carbon Dioxide 25, Anion Gap 14.6, BUN 11, Creatinine 0.90, Estimated Creat Clear 127, Estimated GFR 75, Est GFR ( Amer) 90, Glucose 121 H, Lactate 0.8, Calcium 9.2, Total Bilirubin 0.5, AST 22, ALT 25, Alkaline Phosphatase 79, Total Protein 7.7, Albumin 4.0, G lobulin 3.7 H, Albumin/Globulin Ratio 1.1, Lipase 58, TSH 0.28 L, Thyroxine (T4) 8.2, Serum HCG, Qual Negative 05/14/24 13:25: SARS-CoV-2 (PCR) Not detected, Influenza A Untype (PCR) Not detected, Influenza Type B (PCR) Not detected, Group A Strep Rapid Negative 05/14/24 12:14 05/14/24 12:14 Orders (Tests/Meds): ED MEDICATIONS Discontinued Medications Generic Name Dose Route Start Last Admin Trade Name Freq PRN Reason Stop Dose Admin Acetaminophen 1,000 mg 05/14/24 12:02 05/14/24 12:17 Acetaminophen 1,000mg/100ml Vial IV 05/14/24 12:03 1,000 mg ONCE ONE Administration Lactated Ringer's 1,000 mls @ 999 mls/hr 05/14/24 12:00 05/14/24 12:17 Lactated Ringer's 1000 Ml Bag IV 05/14/24 13:00 999 mls/hr .Q1H1M ONE Administration Sodium Chloride 1,640 mls @ 820 mls/hr 05/14/24 12:32 05/14/24 13:26 Sod Chlor 0.9% 1000ml Bag 30 ml/kg infuse over 2 hr (1640 ml) 05/14/24 14:31 820 mls/hr IV Administration .Q2H ONE Ceftriaxone Sodium 2 gm/ 100 mls @ 200 mls/hr 05/14/24 13:50 05/14/24 14:28 Sodium Chloride IV 05/14/24 14:19 200 mls/hr ONCE ONE Administration Iopamidol 75 ml 05/14/24 12:52 05/14/24 12:53 Iopamidol-370 (76%);100ml Bottle IV 05/14/24 12:53 75 ml ONCE ONE Administration Ondansetron HCl 4 mg 05/14/24 12:02 05/14/24 12:17 Ondansetron 4mg/2ml Vial IV 05/14/24 12:03 4 mg ONCE ONE Administration Sodium Chloride 10 ml 05/14/24 12:52 05/14/24 12:53 Sodium Chloride 0.9% 10ml Syr (Rad Only) IV 05/14/24 12:53 10 ml ONCE ONE Administration ORDERS Category Date Time Status CT abdomen pelvis w con Stat Cat Scan 05/14/24 12:00 Completed XR chest 2V Stat Exams 05/14/24 12:00 Completed Complete Blood Count Auto Diff Stat Lab 05/14/24 12:14 Completed Comprehensive Metabolic Panel Stat Lab 05/14/24 12:14 Completed HCG Qualitative, Serum Stat Lab 05/14/24 12:14 Completed Lactic Acid Stat Lab 05/14/24 12:14 Completed Lipase Stat Lab 05/14/24 12:14 Completed Rapid PCR Covid and Flu A/B Stat Lab 05/14/24 13:25 Completed Strep Scrn Group A (Rapid) Stat Lab 05/14/24 13:25 Completed T4 (Thyroxine) Stat Lab 05/14/24 12:14 Completed Thyroid Stimulating Hormone Stat Lab 05/14/24 12:14 Completed UA [Urinalysis and Microscopic] Stat Lab 05/14/24 11:39 Completed Blood Culture Stat Micro 05/14/24 14:15 Received Strep Screen Confirmation Stat Micro 05/14/24 13:25 Received Urine Culture Stat Micro 05/14/24 11:39 Received Medical Decision Narrative: In summary, this patient is a 28-year-old female presenting to the Emergency Department for evaluation of abdominal pain, nausea, vomiting, and fever. Differential diagnoses considered include but are not limited to cystitis, pyelonephritis, appendicitis, colitis, gastroenteritis, viral syndrome, sepsis. Ruling out the most morbid conditions drove assessment. On exam, the patient is nontoxic-appearing. She is mildly tachycardic in the setting of fever, but otherwise vitals are reassuring. She does have lower abdominal tenderness. Workup included CBC, CMP, lipase, lactic acid, test, TSH, T4, urinalysis, strep swab, viral swab, chest x-ray, and CT abdomen pelvis with IV contrast. She was given a bolus of IV fluids as well as IV acetaminophen. I independently interpreted CT scan prior to the radiologist read and noted transfer pyelonephritis. Please see their read for final interpretation. Labs were obtained that demonstrated leukocytosis with urinary tract infection. Lactic acid is negative and kidney function is normal. On reassessment, patient had great improvement after administration of Tylenol. She states she is feeling much better. Her heart rate is much better with fever control. She was given a sepsis bolus of IV fluids, though doubt sepsis given normal lactic acid and reassuring exam. I feel she likely has simple pyelonephritis. Blood cultures and urine cultures were sent just in case. She was given IV Rocephin to initiate antibiotic therapy . On multiple subsequent reassessments, the patient is resting comfortably and states she feels better and is ready to go home. Given significant improvement in symptoms, I do feel she is appropriate for discharge with treatment of pyelonephritis. She is given prescriptions for cefdinir as well as Zofran and Pyridium. Strict return precautions were given and the patient was discharged with instructions for close outpatient follow-up. Critical Care Critical Care Time Critical Care Time: No
[2024-05-14] MEDS: ONDANSETRON 4MG/2ML VIAL 4 MG IV (12:17)
[2024-05-14] MEDS: ACETAMINOPHEN 1,000MG/100ML VIAL 1000 MG IV (12:17)
[2024-05-14] MEDS: LACTATED RINGERS 1000ML 1,000 ML 999 ML IV (12:17)
[2024-05-14 12:26] LABS: Basophils % 0.2 % (0.1-2.0); Eosinophils % 0.1 % (0.1-12.0); Hematocrit 38.6 % (37.0-47.0); Hemoglobin 12.6 g/dL (12.2-16.2); Lymphocytes # 1.1 K/mm3 (0.7-4.5); Lymphocytes % 6.5 % (10-50); Mean Corpuscular HGB Conc 32.5 g/dL (31.8-35.4); Mean Corpuscular Hemoglobin 28.5 pg (27.0-31.2); Mean Corpuscular Volume 87.7 fl (81-99); Mean Platelet Volume 7.8 fl (7.4-10.4); Monocytes # 0.8 K/mm3 (0.1-1.0); Monocytes % 4.9 % (1.7-9.3); Neutrophils # 14.4 K/mm3 (1.8-7.8); Neutrophils % 88.3 % (37.0-80.0); Platelet Count 376 K/mm3 (142-424); Red Blood Count 4.41 M/mm3 (4.20-5.40); Red Cell Distribution Width 14.2 % (11.5-17.5); White Blood Count 16.3 K/mm3 (4.8-10.8)
[2024-05-14 12:28] LABS: Bacteria,Urine 1+ /lpf; Squamous Epithelial Cell,Urine Occasional #/hpf (0-5); WBC,Urine 50-100 #/hpf (0-3)
[2024-05-14 12:29] LABS: Chloride 102 mmol/L (98-107); Potassium 3.6 mmoL/L (3.5-5.1); Sodium 138 mmol/L (136-145)
[2024-05-14 12:30] LABS: MANUAL DIFFERENTIAL MANUAL DIFFERENTIAL (MANUAL DIFF)
[2024-05-14 12:31] LABS: Alanine Aminotransferase 25 U/L (12-78); Aspartate Amino Transferase 22 U/L (14-36); Blood Urea Nitrogen 11 mg/dl (7-17); Creatinine Clearance Estimated 127 mL/min (50-200); Estimated Glomerular Filt Rate 75 ml/min (>60); GFR (African American) 90 ML/MIN (>60)
[2024-05-14 12:32] LABS: Albumin/Globulin Ratio 1.1 (1.1-1.8); Alkaline Phosphatase 79 U/L (38-126); Anion Gap 14.6 mEq/L (5-15); Bilirubin,Total 0.5 mg/dl (0.2-1.3); Calcium 9.2 mg/dl (8.4-10.2); Carbon Dioxide 25 mmol/L (22.0-30.0); Globulin 3.7 g/dL (1.3-3.2); Glucose 121 mg/dl (74-100); Lactic Acid 0.8 mmol/L (0.7-2.1); Lipase 58 U/L (23-300); Total Protein,Serum 7.7 g/dl (6.3-8.2)
[2024-05-14 12:42] LABS: HCG Qualitative, Serum Negative (Negative)
--- NOTE | 2024-05-14 12:44 | PC.NURSE ---
PT TO CT
[2024-05-14 12:49] LABS: T4 (Thyroxine) 8.2 ug/dl (5.53-11.0)
[2024-05-14] MEDS: IOPAMIDOL-370 (76%);100ML BOTTLE 75 ML IV (12:53)
[2024-05-14] MEDS: SODIUM CHLORIDE 0.9% 10ML SYR (RAD ONLY) 10 ML IV (12:53)
[2024-05-14 13:00] LABS: Lymphocytes % 6 % (10-50); Monocytes % 4 % (2-9); Neutrophils % 90 % (42-76); Platelet Estimate Normal; RBC Morphology Normal; Total Cells Counted 100
[2024-05-14 13:07] LABS: Thyroid Stimulating Hormone 0.28 uIU/mL (0.465-4.68)
--- NOTE | 2024-05-14 13:19 | PC.NURSE ---
Pt resing comfortably in bed. States she Feels so much better . Temp decreased to 99.3 at this time.
[2024-05-14] MEDS: 0.9 % SODIUM CHLORIDE 1000ML 1,640 ML 820 ML IV (13:26)
[2024-05-14 13:30] LABS: Coronavirus 19, PCR Not Detected (NotDetected); Influenza A, PCR Not Detected (NotDetected); Influenza B, PCR Not Detected (NotDetected)
[2024-05-14 13:38] LABS: Strep Scrn Group A (Rapid) Negative (Negative)
[2024-05-14] MEDS: CEFTRIAXONE SODIUM 2 GM in 0.9 % SODIUM CHLORIDE 100 ML IV (14:28)
--- NOTE | 2024-05-14 14:36 | PC.NURSE ---
dr cardenas at bedside to update pt
--- NOTE | 2024-05-15 10:05 | PC.NURSE ---
urine culture discussed with , pt dc with cefdinit, ntd
--- NOTE | 2024-05-16 18:28 | PC.NURSE ---
urine culture discussed with , pt dc with cefdirin. NTD
== END 2024-05-14 15:16 | disposition home or self-care (01) ==
PROVIDERS: Emergency Provider Emergency Medicine; PCP Nurse Practitioner Family
DX: N10 Acute pyelonephritis (principal); B96.29 Other Escherichia coli [E. coli] as the cause of diseases classified elsewhere; R10.30 Lower abdominal pain, unspecified; R50.9 Fever, unspecified; R11.2 Nausea with vomiting, unspecified
CPT/HCPCS: 71046; 74177; 80053; 81001; 83605; 83690; 84436; 84443; 84703; 85007; 85025; 85027; 87040; 87086; 87088; 87186; 87430; 87636; 96365; 96366; 96375; 99285; J0131; J0696; J2405; J7120; Q9967